=== PATIENT | female | born 1995 | race Caucasian/White ===

== ENCOUNTER 2020-11-06 14:19 | Observation (INO) ==
[2020-11-06 15:28] LABS: Bacteria,Urine Few per hpf (None-Few); Bilirubin,Urine Negative (Negative); Blood,Urine Negative (Negative); Clarity,Urine Turbid (Clear); Color,Urine Yellow (Yellow); Glucose,Urine (UA) Normal (Normal); Ketones,Urine Negative (Negative); Leukocyte Esterase,Urine Large (Negative); Mucus,Urine Few per lpf (None-Few); Nitrite,Urine Negative (Negative); Protein,Urine 30 mg/dL (Neg-Trace); Specific Gravity,Urine 1.026 (1.010-1.025); Squamous Epithelial Cell,Urine Moderate per hpf (None-Few); Urobilinogen,Urine Normal (Normal); WBC,Urine 30-50 per hpf (0-3)
[2020-11-06 16:45] LABS: Candida DNA Not Detected (Not Detect); Gardnerella DNA Not Detected (Not Detect); Trichomonas DNA Not Detected (Not Detect)
== END 2020-11-06 15:54 | disposition home or self-care (01) ==
LOC: 1NENULAB
PROVIDERS: ADMIT Obstetrics & Gynecology; ATTEND Obstetrics & Gynecology

== ENCOUNTER → 2021-01-02 21:20 | Observation (INO) ==
[2021-01-02 20:30] LABS: Basophils % 0.1 %; Eosinophils # 0.1 K/mcL (0.0-0.6); Eosinophils % 0.7 %; Hematocrit 33.6 % (35.3-44.9); Hemoglobin 10.6 g/dL (11.5-15.4); Immature Granulocytes % 0.5 % (0-4); Lymphocytes # 2.9 K/mcL (0.6-4.6); Lymphocytes % 19.6 %; Mean Corpuscular HGB Conc 31.5 g/dL (31.6-35.5); Mean Corpuscular Hemoglobin 27.9 pg (28.0-33.3); Mean Corpuscular Volume 88.4 fL (83.0-100.0); Monocytes # 0.9 K/mcL (0.0-1.3); Monocytes % 6.2 %; Neutrophils # 10.8 K/mcL (1.6-8.9); Platelet Count 309 K/mcL (140-400); Segmented Neutrophils % 72.9 %; White Blood Count 14.8 K/mcL (4.3-11.1)
[2021-01-02 20:51] LABS: Alanine Aminotransferase 6 Units/L (7-52); Aspartate Amino Transferase 8 Units/L (13-39); BUN/Creatinine Ratio 10 (6-26); Blood Urea Nitrogen 6 mg/dL (6-20); Lactate Dehydrogenase 103 Units/L (140-271); Uric Acid 5.6 mg/dL (2.3-7.6); eGFR For African Americans > 60 (> 60); eGFR For Non-African Americans > 60 (> 60)
[2021-01-02 21:09] LABS: Protein/Creatinine Ratio,Urine 0.31 mg/mg (0.00-0.20)
[2021-01-02 22:51] LABS: Candida DNA Not Detected (Not Detect); Gardnerella DNA Not Detected (Not Detect); Trichomonas DNA Not Detected (Not Detect)
== END | disposition home or self-care (01) ==
LOC: 1NENULAB
PROVIDERS: ADMIT Student in an Organized Health Care Education/Training Program; ATTEND Student in an Organized Health Care Education/Training Program

== ENCOUNTER 2021-01-09 19:05 | Observation (INO) | END 2021-01-09 20:05 | disposition home or self-care (01) | LOC: 1NENULAB | PROVIDERS: ADMIT Obstetrics & Gynecology; ATTEND Obstetrics & Gynecology ==

== ENCOUNTER 2021-01-10 04:00 | Inpatient (IN) ==
[2021-01-10] MEDS ORDERED: Metoclopramide 10 MG/2 ML VIAL IVP PRN (08:23)
[2021-01-10] MEDS ORDERED: *HR* Nalbuphine 10 MG/ML AMPUL IV PRN (08:23)
[2021-01-10] MEDS ORDERED: Naloxone 0.4 MG/ML INJ IVP PRN (08:23)
[2021-01-10] MEDS ORDERED: Famotidine 20 MG/2 ML VIAL IVP PRN (08:23)
[2021-01-10] MEDS ORDERED: Oxytocin 20 units/ LR 1000 mL 20 UNIT/1,000 ML BAG IVC SCH ×2 (08:30→17:45)
[2021-01-10] MEDS ORDERED: Ringers Solution, Lactated 1,000 ML IVC SCH (08:30)
[2021-01-10] MEDS ORDERED: EPHEDrine 50 MG/ML VIAL IVP PRN (09:28)
[2021-01-10] MEDS ORDERED: Epidural Premix (fent/bupiv) 110 ML EP SCH (09:30)
[2021-01-10 09:42] LABS: Basophils % 0.2 %; Eosinophils # 0.1 K/mcL (0.0-0.6); Eosinophils % 0.8 %; Hematocrit 34.7 % (35.3-44.9); Hemoglobin 10.9 g/dL (11.5-15.4); Immature Granulocytes % 0.4 % (0-4); Lymphocytes # 2.4 K/mcL (0.6-4.6); Lymphocytes % 19.6 %; Mean Corpuscular HGB Conc 31.4 g/dL (31.6-35.5); Mean Corpuscular Hemoglobin 27.8 pg (28.0-33.3); Mean Corpuscular Volume 88.5 fL (83.0-100.0); Mean Platelet Volume 9.1 fL (9.4-12.4); Monocytes % 7.7 %; Neutrophils # 8.7 K/mcL (1.6-8.9); Platelet Count 309 K/mcL (140-400); Red Blood Count 3.92 M/mcL (3.82-4.97); Segmented Neutrophils % 71.3 %; White Blood Count 12.3 K/mcL (4.3-11.1)
[2021-01-10 11:09] LABS: Adenovirus Not Detected (Not Detect); Bordetella Pertussis Not Detected (Not Detect); Chlamydophila pneumoniae Not Detected (Not Detect); Coronavirus 229E Not Detected (Not Detect); Coronavirus HKU1 Not Detected (Not Detect); Coronavirus NL63 Not Detected (Not Detect); Coronavirus OC43 Not Detected (Not Detect); Human Metapneumovirus Not Detected (Not Detect); Human Rhinovirus/Enterovirus Not Detected (Not Detect); Influenza A Subtype 2009 H1 Not Detected (Not Detect); Influenza B Not Detected (Not Detect); Mycoplasma pneumoniae Not Detected (Not Detect); Parainfluenza Virus 1 Not Detected (Not Detect); Parainfluenza Virus 2 Not Detected (Not Detect); Parainfluenza Virus 3 Not Detected (Not Detect); Parainfluenza Virus 4 Not Detected (Not Detect); Respiratory Syncytial Virus Not Detected (Not Detect); SARS-CoV-2 Not Detected (Not Detect)
[2021-01-10 13:57] LABS: Amphetamine Screen,Urine Negative ng/mL (Cutoff=1000); Barbiturate Screen,Urine Negative ng/mL (Cutoff=200); Benzodiazepines Screen,Urine Negative ng/mL (Cutoff=200); Cannabinoid Screen,Urine Negative ng/mL (Cutoff = 50); Cocaine Screen,Urine Negative ng/mL (Cutoff= 300); Opiate Screen,Urine Negative ng/mL (Cutoff=300); Phencyclidine Screen,Urine Negative ng/mL (Cutoff=25)
[2021-01-10] MEDS ORDERED: Measles/Mumps/Rubella Vacc 0.5 ML VIAL SQ PRN (17:45)
[2021-01-10] MEDS ORDERED: Benzocaine/Menthol 56 GM AEROSOL SPRAY TP PRN (17:45)
[2021-01-10] MEDS ORDERED: Lanolin 7 G OINT...G. TP PRN (17:45)
[2021-01-10] MEDS ORDERED: Rho Immune Globulin 1,500 UNIT SYRINGE IM PRN (17:45)
[2021-01-10] MEDS: Ibuprofen 600 MG TABLET PO SCH (19:22)
[2021-01-10] MEDS: Acetaminophen 325 MG TABLET PO SCH (20:24)
[2021-01-11] MEDS: Ibuprofen 600 MG TABLET PO SCH ×3 (03:16→14:29)
[2021-01-11] MEDS: Acetaminophen 325 MG TABLET PO SCH (07:52)
[2021-01-11 08:28] VITALS: BP 103/56
[2021-01-11] MEDS ORDERED: Prenatal Vit/FA 1 EACH TABLET PO SCH (09:00)
== END 2021-01-11 19:07 | disposition home or self-care (01) | DRG 560 ==
LOC: 1NENULAB 07:59 → 1NENUOBS 20:40
PROVIDERS: ADMIT Obstetrics & Gynecology; ATTEND Obstetrics & Gynecology

== ENCOUNTER → 2022-03-11 02:38 | Observation (INO) ==
[2022-03-11 01:54] LABS: Bacteria,Urine Few per hpf (None-Few); Bilirubin,Urine Negative (Negative); Blood,Urine Negative (Negative); Clarity,Urine Ex.Turbid (Clear); Color,Urine Yellow (Yellow); Glucose,Urine (UA) Normal (Normal); Ketones,Urine Negative (Negative); Leukocyte Esterase,Urine Trace (Negative); Mucus,Urine Few per lpf (None-Few); Nitrite,Urine Negative (Negative); PH,Urine 7.5 pH Units (5.0-8.0); Protein,Urine 30 mg/dL (Neg-Trace); RBC,Urine 0-3 per hpf (0-3); Specific Gravity,Urine 1.024 (1.010-1.025); Urobilinogen,Urine Normal (Normal); WBC,Urine 0-3 per hpf (0-3)
[~2022-03-11 02:38] MED LIST: Ringers Solution, Lactated 1,000 ML IVC ONE
== END | disposition home or self-care (01) ==
LOC: 1NENULAB
PROVIDERS: ADMIT Advanced Practice Midwife; ATTEND Advanced Practice Midwife

== ENCOUNTER 2022-03-11 18:21 | Inpatient (IN) ==
[~2022-03-11 18:21] MED LIST changes: +*HR* Oxytocin 10 UNIT/ML VIAL IVC ONE; -Ringers Solution, Lactated 1,000 ML IVC ONE
[2022-03-11] MEDS ORDERED: Naloxone 0.4 MG/ML INJ IVP PRN (18:29)
[2022-03-11] MEDS ORDERED: Ondansetron 4 MG/2 ML VIAL IVP PRN (18:29)
[2022-03-11] MEDS ORDERED: Ibuprofen 600 MG TABLET PO ONE (18:31)
[2022-03-11] MEDS ORDERED: Measles/Mumps/Rubella Vacc 0.5 ML VIAL SQ PRN (21:41)
[2022-03-11] MEDS ORDERED: Ondansetron ODT 4 MG TAB.RAPDIS SL PRN (21:41)
[2022-03-11] MEDS ORDERED: Lanolin 7 G OINT...G. TP PRN (21:41)
[2022-03-11] MEDS ORDERED: Benzocaine/Menthol 56 GM AEROSOL SPRAY TP PRN (21:41)
[2022-03-11] MEDS ORDERED: *HR* Oxytocin 10 UNIT/ML VIAL IM ONE (21:41)
[2022-03-11] MEDS: Acetaminophen 325 MG TABLET PO SCH (23:59)
[2022-03-12] MEDS: Ibuprofen 600 MG TABLET PO SCH ×5 (04:07→21:44)
[2022-03-12] MEDS: Acetaminophen 325 MG TABLET PO SCH ×4 (06:21→21:43)
[2022-03-12] MEDS: Prenatal Vit/FA 1 EACH TABLET PO SCH (08:13)
[2022-03-12 20:06] VITALS: BP 128/77; TEMP 97.9; O2SAT 99
[2022-03-13] MEDS: Acetaminophen 325 MG TABLET PO SCH ×2 (03:46→11:12)
[2022-03-13] MEDS: Ibuprofen 600 MG TABLET PO SCH ×2 (03:47→11:12)
[2022-03-13] MEDS: Prenatal Vit/FA 1 EACH TABLET PO SCH (07:40)
[2022-03-13 08:28] VITALS: PULSE 134
== END 2022-03-13 14:01 | disposition home or self-care (01) | DRG 560 ==
LOC: 1NENULAB 18:21 → 1NENUOBS 21:36
PROVIDERS: ADMIT Advanced Practice Midwife; ATTEND Advanced Practice Midwife